=== PATIENT | female | born 1985 | race Caucasian/White ===

== ENCOUNTER 2017-10-26 05:36 | Day surgery (SDC) | payer OTHER ==
[2017-10-20 09:02] LABS: HEMATOCRIT 40.4 % (36.0-47.0); HEMOGLOBIN 13.7 g/dL (12.0-15.5); MEAN CORPUSCULAR HEMOGLOBIN 28.8 pg (27.0-33.4); MEAN CORPUSCULAR HGB CONC 33.9 g/dL (32.0-36.0); MEAN CORPUSCULAR VOLUME 85 fl (80-97); PLATELET COUNT 274 10^3/uL (150-450); RED BLOOD COUNT 4.77 10^6/uL (3.72-5.28); RED CELL DISTRIBUTION WIDTH 13.1 % (11.5-14.0); WHITE BLOOD COUNT 7.7 10^3/uL (4.0-10.5)
[~2017-10-26 05:36] MED LIST: LACTATED RINGERS 1000 ML IV PRN; METRONIDAZOLE 500 MG/NS RTU 100 ML IV PRN
[2017-10-26] MEDS ORDERED: BUPIVACAINE HCL 0.25% /EPINEPHRINE INJ/PF 30 ML SDV ONE (06:54)
[2017-10-26] MEDS ORDERED: BUPIVACAINE HCL 0.25 % INJ/PF (2.5 MG/1 ML) 30 ML VIAL ONE (06:54)
[2017-10-26] MEDS ORDERED: BUPIVACAINE INJ/PF LIPOSOME/PF 266 MG/20 ML SDV ONE (06:54)
[2017-10-26] MEDS ORDERED: MIDAZOLAM 2 MG/2 ML INJ ONE (07:08)
[2017-10-26] MEDS ORDERED: PROPOFOL INJ 200 MG/20 ML VIAL IV ONE (07:08)
[2017-10-26] MEDS ORDERED: ACETAMINOPHEN 100 ML IV ONE (07:09)
[2017-10-26] MEDS ORDERED: FENTANYL CITRATE INJ/PF 100 MCG/2 ML AMPUL ONE (07:09)
[2017-10-26] MEDS ORDERED: HYDROMORPHONE HCL INJ/PF 2 MG/ML AMPULE ONE (07:27)
[2017-10-26] MEDS ORDERED: DIPHENHYDRAMINE HCL 50 MG/ML VIAL IV PRN (08:01)
[2017-10-26] MEDS ORDERED: PROMETHAZINE HCL INJ 25 MG/1 ML VIAL IV PRN ×2 (08:01)
--- NOTE | 2017-10-26 08:57 | PDOC DISCHARGE SUMMARY ---
Discharge Summary (SDC) - Discharge Final Diagnosis: Hemorrhoids Date of Surgery: 10/26/17 Discharge Date: 10/26/17 Condition: Stable Treatment or Instructions: [facility] [address] [place] [id number] Hemorrhoid or Anal Surgery Discharge Instructions 1. General Information: a. DO NOT DRIVE a car or operate dangerous machinery for 4-7 days. b. DO NOT consume alcohol, tranquilizers, sleeping medications or any non- prescribed medications for 24 hours unless approved by your doctor or as long as taking narcotic prescription medications. c. DO NOT make important decisions or sign any important papers for the next 24 hours. d. Have a responsible person with you tonight. 2. Activity Restrictions: 2 weeks a. Avoid heavy lifting or straining until you feel more comfortable. b. It is fine to go for walks, up and down steps, ride in a car. 3. Treatment: a. Tomorrow morning begin warm water sitz baths (soaks) with plain water. You may do 3-4 times per day or after bowel movements to help relieve spasm and pain. Place a dry gauze or panty liner over the sight to catch drainage and blood to help keep your clothing dry. b. You may use Tucks or other medicated wipes to help clean the area as needed. c. If packing used it will pass spontaneously with bowel function. External dressings and medicated gauze should be removed before sitz baths. 4. Medications: a. You may take Toradol 10mg one pill every six hours as needed for pain. You do have long acting pain medication that was injected during surgery. b. Many adults find good pain relief with Advil 600-800 mg three times a day with meals for short courses. This can cause indigestion, ulcers, and kidney problems with long-term use. c. Resume all normal medications unless a change is specified by your doctors. d. Stool softeners are encouraged to help you for 2-4 weeks to maintain a soft stool and avoid more painful bowel movements due to pain medication. Colace is often used. e. A numbing cream may be prescribed, this can be applied after sitz baths around the perianal area before the sight is covered with a gauze pad. f. Constipation is very common after anal surgery and you may take over-the- counter medications to help stimulate the bowel such as Milk of Magnesia, Senokot tablets, prune juice and drink plenty of water. 5. Diet: a. Begin with clear liquids and if you do well you may then advance to normal foods low in fat and protein at first. Smaller portion size may be jennings the first night. b. Acidic (orange juice, tomato), foods high in ruffage (grapes, celery, asparagus) and spicy foods should be avoided for comfort the first 2-3 weeks since they can cause more burning sensation with bowel movements. 6..Follow Up Care: a. Please call the office to schedule a follow up appointment with your doctor for 2 weeks. In the event of any postoperative problems or questions or you may call the office during business hours or the On-Call physician evenings and weekends at [facility]. [facility] [phone] I understand the instructions for my postoperative care as described above and a copy has been given to me. Patient/Significant Other Witness Date Referrals: DIANNE HERNANDEZ MD [Primary Care Provider] - Discharge Diet: As Tolerated Discharge Activity: No Lifting Over 10 Pounds, No Lifting/Push/Pulling, Walk Frequently Report the Following to Your Physician Immediately: Increase in Pain, Fever over 101 Degrees, Unusual Bleeding
--- NOTE | 2017-10-26 09:13 | Operative Report ---
Operative Report DATE OF SURGERY: 10/26/17 PREOPERATIVE DIAGNOSIS: Symptomatic external/internal hemorrhoids POSTOPERATIVE DIAGNOSIS: Same OPERATION: 1. Examination under anesthesia. 2. 3 compartment hemorrhoidectomy , open SURGEON: JUDITH MERAZ ANESTHESIA: GA TISSUE REMOVED OR ALTERED: Hemorrhoids 3 COMPLICATIONS: None ESTIMATED BLOOD LOSS: 20 cc INTRAOPERATIVE FINDINGS: See below PROCEDURE: Patient was taken from the preop holding her to the main operating room where general anesthesia was induced. She was placed in the prone jackknife position buttocks spread taped, perianal skin clipped of hair. The perianal tissue was prepped and draped with Betadine. Surgical plan surgical timeout were conducted. Findings were significant for circumferential internal hemorrhoids, nonthrombosed. There was no other visible or palpable anorectal pathology Approximately 20 cc of Marcaine was injected into the subcutaneous tissues, and up along the ischiorectal fossa. We approached the left lateral hemorrhoid first. The anal canal was dilated up gingerly to accept two adult fingers. The left lateral hemorrhoid was elevated with a Allis clamp. A 4-0 chromic sutures placed at the apex of the hemorrhoid. The hemorrhoid was excised with a #10 blade, and overlying venous plexus excised, elevating the surrounding mucosa covering is much of venous tissue as practical. Performed using Metzenbaum scissors. The sphincter was kept in view and preserved throughout the dissection. The mucosal defect and the perianal skin was closed , after trimming some redundant skin with scissors , using the previously placed chromic suture. The identical procedure is performed in the patient's right posterior lateral position and in the patient's anterior position. The anterior hemorrhoid was the smallest of the 3. At the conclusion of the operation, the anal verge circumferentially was not but not tight. We are easily able to get 2 fingers in the anal canal. Gelfoam was placed in the anal canal, and 20 cc of full- strength Exparel was injected into the surrounding obtain his tissues. Patient tolerated the seizure well, extubated, taken to recovering room in stable condition
[2017-10-26] MEDS ORDERED: GLYCOPYRROLATE INJ 0.4 MG/2 ML VIAL ONE (10:12)
[2017-10-26] MEDS ORDERED: DEXAMETHASONE SOD PHOSPHATE INJ 4 MG/1 ML VIAL ONE (10:12)
[2017-10-26] MEDS ORDERED: SUCCINYLCHOLINE CHLORIDE INJ 200 MG/10 ML VIAL ONE (10:12)
[2017-10-26] MEDS ORDERED: ONDANSETRON HCL INJ/PF 4 MG/2 ML SDV ONE (10:12)
[2017-10-26] MEDS ORDERED: KETOROLAC TROMETHAMINE 60 MG/2 ML SDV ONE (10:12)
[2017-10-26] MEDS ORDERED: ACETAMINOPHEN 325 MG TABLET ONE (10:26)
[2017-10-26] MEDS ORDERED: ACETAMINOPHEN 325 MG TABLET PO PRN (10:38)
[2017-10-26 11:40] VITALS: BP 109/71
== END 2017-10-26 11:15 | disposition home or self-care (01) ==
LOC: OROUT 05:36
PROVIDERS: ATTEND Surgery
PROC: 06BY0ZC Excision of Hemorrhoidal Plexus, Open Approach (ICD-10-PCS; principal; 2017-10-26 07:30)
DX: K64.9 Unspecified hemorrhoids (principal); K64.4 Residual hemorrhoidal skin tags; Z88.5 Allergy status to narcotic agent; Z88.8 Allergy status to other drugs, medicaments and biological substances
CPT/HCPCS: 46260; 36415; 85027; 81025; 88304 ×2; J3490; J1100; J1885; J0330; J2405; J2704; J0131; C9290; 902; J1170; J2250; J3010